=== PATIENT | female | born 1960 | race Caucasian/White ===

== ENCOUNTER → 2016-04-25 | Outpatient (CLI) | payer MEDICARE, MEDICAID ==
[~2016-04-25] MED LIST: "\\\"PREP SPRAY\\\"-TIN4 OZ"; KLONOPIN1 MG PO; LATUDA40 MG PO; LEVOFLOXACIN750 MG PO; PROZAC20 MG PO; VALIUM PO; ZYPREXA20 MG PO
[2016-04-25 12:37] LABS: CPK 111 IU/L (21-215); MAGNESIUM 2.1 mg/dL (1.3-2.6)
== END | disposition disaster alternative care site (69) ==
LOC: LFPA 12:16
PROVIDERS: Nurse Practitioner Family
DX: R07.89 Other chest pain (principal)

== ENCOUNTER 2016-06-24 20:16 | Emergency (ER) | payer MEDICARE, MEDICAID ==
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
== END 2016-06-24 21:29 | disposition disaster alternative care site (69) ==
LOC: GMED 20:16
DX: F41.1 Generalized anxiety disorder (principal); F17.210 Nicotine dependence, cigarettes, uncomplicated; F32.9 Major depressive disorder, single episode, unspecified; Z79.899 Other long term (current) drug therapy

== ENCOUNTER 2016-10-08 23:01 | Emergency (ER) | payer MEDICARE, MEDICAID ==
--- NOTE | ~2016-10-08 | ER ---
PATIENT'S NAME: NICOLÁS LAINEZ [facility] AGE: 56 Y [address] ROOM: [place] [id number] LOCATION: [facility] ADMIT DATE: 10/08/2016 ER/Outpatient Report DISCHARGE DATE: 10/08/2016 FAMILY PHYSICIAN: PHYSICIAN, NO ATTENDING PHYSICIAN: Gonzalo Segal Time of Patient Arrival: 2301 hours. Time of Patient Evaluation: 2310 hours. CHIEF COMPLAINT: Right foot/ankle injury. HISTORY OF PRESENT ILLNESS: This is a 56-year-old female who presents to the ER. She states she was standing up on her couch when she fell off, injuring her right foot and ankle. The patient states she has not been able to ambulate very well secondary to the pain and she has had a significant amount of swelling noted. She states this occurred around 1:30 this afternoon. She denies any other injury at this time. ALLERGIES: NO KNOWN ALLERGIES. MEDICATIONS: Please see medication list in nurse's notes. PAST MEDICAL HISTORY: 1. Depression. 2. Hypothyroidism. 3. Hysterectomy. SOCIAL HISTORY: She smokes half pack a day. Denies any drug or alcohol use. REVIEW OF SYSTEMS: CONSTITUTIONAL: Denies any change in weight or fatigue. MUSCULOSKELETAL: Complaining of right foot and ankle pain. HEMATOLOGIC: No easy bruising or bleeding. SKIN: Has some bruising to her right foot. PHYSICAL EXAMINATION: VITAL SIGNS: Height 5 feet 4 inches stated, weight 82.9 kg taken, blood pressure is 114/64, pulse 77, respirations 16, temperature 96.6 degrees tympanically, and saturations 93% on room air. Sim Coma Score is 15. GENERAL: Alert, calm, well-developed female, in mild distress. PATIENT'S NAME: NICOLÁS LAINEZ [facility] AGE: 56 Y [address] ROOM: [place], [place] [address] LOCATION: [facility] ADMIT DATE: 10/08/2016 ER/Outpatient Report DISCHARGE DATE: 10/08/2016 FAMILY PHYSICIAN: PHYSICIAN, NO ATTENDING PHYSICIAN: Gonzalo Segal EXTREMITIES: No clubbing or cyanosis. She does have decreased range of motion of her right foot and ankle secondary to pain. She does have a significant amount of swelling noted to the top and lateral portion of her foot and her lateral ankle. She has a little bit of tenderness in the lateral malleolus. She has some tenderness over the Achilles tendon. She does have good reflex with that however. She does have tenderness over the 3rd, 4th, and 5th metatarsals with palpation. She has good sensation distally to her toes. LABORATORY DATA: None were done. X-RAYS: The right foot and ankle were done and does show a 5th metatarsal fracture. IMPRESSION: 1. Right ankle injury. 2. Right fifth metatarsal fracture. ASSESSMENT AND PLAN: We will place the patient in a CAM walking boot. We will have her non- weightbearing with crutches. The patient states she would like to use [facility], therefore I give her a business card for them and would like her to call them on Monday for a followup appointment. Did give her 2 Stearns here in the emergency room for her pain. We will send her home with a prescription for Stearns to use as directed and she should follow up as directed. The patient understands and agrees with care. HOLDEN CARUSO PA-C FOR MD DEVANG PHAM/leodan /[id number] d: 10/09/16 1212 t: 10/19/16 1817, OUTPATIENT REPORT
== END 2016-10-08 23:55 | disposition disaster alternative care site (69) ==
LOC: GACC 23:01
DX: S92.354A Nondisplaced fracture of fifth metatarsal bone, right foot, initial encounter for closed fracture (principal); S99.911A Unspecified injury of right ankle, initial encounter; F32.9 Major depressive disorder, single episode, unspecified; E03.9 Hypothyroidism, unspecified; F17.210 Nicotine dependence, cigarettes, uncomplicated; Z90.710 Acquired absence of both cervix and uterus; Z79.899 Other long term (current) drug therapy; W08.XXXA Fall from other furniture, initial encounter